=== PATIENT | male | born 1990 | race Caucasian/White ===

== ENCOUNTER → 2025-03-14 07:05 | Outpatient (REF) | payer OTHER, SELFPAY | LOC: RAD 07:05 | PROVIDERS: ATTENDING PHYSICIAN Internal Medicine Rheumatology; FAMILY PHYSICIAN Family Medicine | DX: M13.0 Polyarthritis, unspecified (principal) | CPT/HCPCS: 72114; 72200; 73070; 73560; 73565; 73630 ==

== ENCOUNTER → 2025-05-13 09:15 | Outpatient (REF) | payer OTHER, SELFPAY | LOC: RAD 09:15 | PROVIDERS: FAMILY PHYSICIAN Family Medicine | DX: N44.2 Benign cyst of testis (principal); N50.812 Left testicular pain | CPT/HCPCS: 76870; 93976 ==

== ENCOUNTER 2025-05-16 00:05 | Emergency (ER) | payer OTHER, SELFPAY ==
[2025-05-16] VITALS (18 sets, daily range): BP systolic 76–101; BP diastolic 35–64; BMI 28.2
--- NOTE | 2025-05-16 00:31 | ED.GENMED ---
History of Present Illness
General
Chief Complaint: Abdominal Symptoms
Source: patient
Exam Limitations: none
Time Seen by Provider: 05/16/25 00:28
Nursing documentation reviewed up to this point in time: agreed with
History of Present Illness
History of Present Illness:
Note:
CHIEF COMPLAINT(S)
Abdominal pain, nausea, and diarrhea.
HISTORY OF PRESENT ILLNESS
The patient is a 31-year-old male who presents with abdominal pain, nausea, and diarrhea that began around 4:30 PM. He describes the pain as severe, affecting both the stomach and head, and noted that his symptoms worsened after an initial upset
stomach feeling. The patient reports that he could induce vomiting at will, initially attributing his symptoms to overeating. Approximately an hour after experiencing an upset stomach, he developed vomiting and diarrhea simultaneously. The diarrhea
is characterized as liquid with red discoloration in the water, and he has experienced approximately eight bowel movements within the past 90 minutes. The patients spouse experienced similar symptoms approximately one hour earlier. Both the patient
and his had consumed similar meals, including a Thai toast casserole in the morning and several appetizers, including alpine poppers, later in the day. However, other individuals who consumed the same food did not report similar symptoms. The
patient denied any fever, having checked multiple times.
SOCIAL DETERMINANTS AFFECTING HEALTH
The patient expresses concern about substance use, noting occasional cigar smoking but denies being a regular smoker. He also reports minimal alcohol consumption, preferring beer and light alcoholic drinks on social occasions.
SOCIAL HISTORY
The patient smokes cigars occasionally but is not a habitual cigarette smoker. Alcohol consumption is minimal, with preferences for low-alcohol content beverages.
MEDICATIONS
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
PHYSICAL EXAM
General: Alert, no acute distress.
Skin: Warm, dry.
Head: Normocephalic, atraumatic.
Neck: Supple, trachea midline.
Eye Ears, nose, mouth and throat: Oral mucosa moist.
Cardiovascular: Normal peripheral perfusion, No edema.
Respiratory: Respirations are non-labored.
Gastrointestinal: Abdomen nondistended.
Back: Normal range of motion, Normal alignment.
Musculoskeletal: Normal ROM, normal strength.
Neurological: Alert and oriented to person, place, time, and situation, No focal neurological deficit observed.
Psychiatric: Cooperative, appropriate mood & affect.
PLAN
The plan includes obtaining stool samples for further analysis to determine the cause of the symptoms. Provided advice on dietary restrictions to promote gastrointestinal comfort, suggesting the patient avoids meat and bread. Initiated fluid
replacement therapy and continued monitoring of symptoms.
DIFFERENTIAL DIAGNOSIS
The Differential Diagnosis includes, in no particular order and is not limited to:
1. Gastroenteritis (possibly foodborne)
2. Viral Gastroenteritis
3. Salmonella infection
4. Staphylococcal food poisoning
5. Campylobacter infection
6. Norovirus infection
7. Escherichia coli (E. coli) infection
8. Clostridium difficile infection
9. Rotavirus infection
10. Parasitic infections (e.g., Giardia)
CARE-UPDATE
05/16/25 - 04:26
Patient is now tolerating oral liquids beyond ice chips and reports significant improvement in overall well-being.
Disposition:
SUMMARY OF ENCOUNTER
The patient, a 31-year-old male, was seen due to nausea, vomiting, and diarrhea that started earlier in the day. Symptoms have since resolved, and the patient is feeling much better. In the emergency department, his condition improved considerably,
requiring no acute interventions.
DISPOSITION
Discharge.
PLAN
The patient will continue with supportive care measures and dietary restrictions as discussed.
PATIENT EDUCATION AND COUNSELING
The patient was advised on dietary restrictions to avoid potential triggers that could worsen gastrointestinal symptoms. He was informed to seek medical care if symptoms returned or worsened.
FOLLOW-UP INSTRUCTIONS
Patient advised to follow up with primary care provider if symptoms persist or worsen.
MEDICATION RECONCILIATION
A prescription for ondansetron (Zofran) was provided for nausea, should symptoms reoccur.
MEDICAL DECISION MAKING
- Number and Complexity of Problems Addressed:
Gastrointestinal complaints possibly related to foodborne or viral causes.
- Risk:
Prescription medication was prescribed, indicating prescription drug management for nausea.
DIAGNOSIS
1. Nausea and vomiting, suspected gastroenteritis - ICD-10 code R11.2
2. Diarrhea, unspecified - ICD-10 code R19.7
Phy Exam
Physical Exam
Physical Exam:
.
Course
Orders/Labs/Results
Orders:
Orders
05/16/25 00:29
Electrocardiogram (*1) Stat
Reason for Study: Abdominal Pain
CT Abd/Pel (IV only)-DH only Urgent
Comment:
Reason For Exam: abd pain, bloody stool
Cardiac Monitoring- Treatment ONCE
EKG- Treatment ONCE
0.9% Sodium Chloride 1000 ml [Nss] 1,000 ml IV BOLUS
Ondansetron Injectable [Zofran] 4 mg IV NOW STA
05/16/25 00:53
Complete Blood Count/With Diff Urgent
Comprehensive Metabolic Panel Urgent
Lactic Acid Urgent
Lipase Urgent
Troponin I Q6H
Blood Culture Q30M
MAYA Source: Blood/Venous
Specimen Description:
05/16/25 00:59
Dicyclomine HCl [Bentyl] 20 mg IM NOW STA
05/16/25 01:20
Blood Culture Q30M
MAYA Source: Blood/Venous
Specimen Description:
05/16/25 02:11
Morphine Sulfate 4 mg IV NOW STA
Ondansetron Injectable [Zofran] 4 mg IV NOW STA
05/16/25 02:23
0.9% Sodium Chloride 1000 ml [Nss] 1,000 ml IV BOLUS
Abnormal Lab Results
05/16/25
00:53
MPV 11.6 H fL
(7.4-10.4)
Abs Immat Gran (auto) 0.1 H 10^3/uL
(0-0.05)
Absolute Neuts (auto) 9.5 H 10^3/uL
(1.4-6.5)
Absolute Lymphs (auto) 0.3 L 10^3/uL
(1.2-3.4)
Absolute Monos (auto) 0.7 H 10^3/uL
(0.1-0.6)
Immature Gran % 0.7 H %
(0-0.5)
Neutrophils % 89.0 H %
(42.2-75.2)
Lymphocytes % 2.9 L %
(20.5-51.1)
Carbon Dioxide 21 L mmol/L
(22-30)
BUN 33 H mg/dl
(9-20)
Glucose 130 H mg/dl
(70-99)
Lactic Acid 3.2 H mmol/L
(0.7-2.0)
Total Bilirubin 1.5 H mg/dl
(0.2-1.3)
05/16/25 00:53
05/16/25 00:53
Vital Signs
Initial and Last Documented VS:
Initial Vital Signs
Temp Pulse Resp BP
99.8 F 103 28 81/58
05/16/25 00:22 05/16/25 00:22 05/16/25 00:22 05/16/25 00:22
Last Documented Vital Signs
Temp Pulse Resp BP Pulse Ox
99.8 F 87 25 98/58 98
05/16/25 00:22 05/16/25 04:45 05/16/25 04:45 05/16/25 04:30 05/16/25 04:45
*Radiology
Radiology exam reviewed: radiology read reviewed
*Pulse Oximetry
Patient hypoxic: no
*Critical Care Note
Total Time (30-74mins, 75-104mins- exclusive of procedures): Not Applicable
Update Note
Update Note:
NAME: NOEL NEIL
DATE OF EXAM: 05/16/2025
Patient No: [id number]
Physician: JA^Rashad
Date of : 1990
Past Medical History (entered by Technologist):
Reason For Exam (entered by Technologist): abd pain, vomiting, bloody diarrhea.
Other Notes (entered by Technologist): no prior
Additional Information (per [facility]):
CT ABDOMEN/PELVIS WITH CONTRAST
IMPRESSION:
1. Mild diffuse colonic wall thickening and wall thickening of loops of small bowel within the central lower abdomen may represent enterocolitis
2. No bowel obstruction. Normal gallbladder and appendix
Incidentals:
- No obstructive uropathy.
- No hepatic or pancreatic mass.
- No abdominal aortic aneurysm.
- No acute osseous abnormality.
- No acute abnormality within the visualized lungs.
- No acute abnormality within the visualized soft tissues.
Case finalized on 05/16/25 02:26 EDT
Omar Amador M.D.
This report has been electronically signed and verified by the Radiologist whose name is printed above.
ED Attending Note
-
Portions of this chart may have been created with voice recognition software.� Occasional wrong word or��sound alike� substitutions may have occurred due to the inherent limitations of voice recognition software.
Discharge Plan
Departure
Patient Disposition: Home (Routine Discharge)
Date of Disposition: 05/16/25
Time of Disposition: 04:36
Patient with high blood pressure during this ER visit?: Yes
Condition: Good
Discharge Problem:
Gastroenteritis
Instructions: Diarrhea in teens and adults, Clear Liquid Diet, Nausea and Vomiting, Adult (DC), BLOOD PRESSURE
Prescriptions:
New
ondansetron 4 mg tablet,disintegrating
4 mg PO Q4H PRN (Reason: nausea and vomiting) Qty: 20 0RF
Referrals:
Krzysztof Mott MD [Family Provider, Family Practice]
Activity Restrictions/Additional Instructions:
Thank You for choosing [facility].
It was a pleasure meeting you and taking part in your care. We hope for your continued healing and wellness.
Please read discharge instructions in their entirety. However, they are for general education and may not describe your exact diagnosis at discharge. Information on your ER visit and medical conditions were discussed with you along with appropriate
follow up information...
If indicated, please take your medications as instructed and indicated on discharge paperwork.
Please schedule a follow up appointment as directed. Call to schedule an appointment
Please return to the emergency department with ANY change in, persisting, or worsening of symptoms. If any of your symptoms do not improve, or persist, or become more severe within 6-12 hours, please return to the emergency department for further
care.
Please return to the emergency department if you develop a headache, neck pain/stiffness, fever greater than 100.4F, chest pain, shortness of breath, persistent nausea, vomiting, slurred speech, difficulty walking, numbness/tingling, weakness, signs
of infection or any other symptoms that are worrisome to you.
If you have any questions or concerns please do not hesitate to call the Hospital at .
Interventions
Interventions:
*General Assessment Last Done: 05/16/25 00:54
*Neglect/Abuse Screening Last Done: 05/16/25 00:54
*ED COVID-19 Vaccine History Last Done: 05/16/25 00:54
*ED Influenza Vaccine History Last Done: 05/16/25 00:54
[facility] Risk Assessment Tool Last Done: 05/16/25 01:57
*Risk Screen - Suicide (C-SSRS) Last Done: 05/16/25 00:22
*Nursing Disposition Last Done: 05/16/25 05:14
[id number] Assessment Last Done: 05/16/25 01:58
Discharge Date and Time
Discharge Date/Time: 05/16/25 05:15
Print Language: SPANISH
[2025-05-16] MEDS: ZOFRAN 4 MG IV ×2 (00:53→02:15)
[2025-05-16] MEDS: NSS 1000 IV ×2 (00:53→02:24)
[2025-05-16] MEDS: BENTYL 20 MG IM (01:05)
[2025-05-16 01:11] LABS: Hematocrit 50.5 % (39.0-52.0); Hemoglobin 17.9 g/dL (13.0-18.0); Mean Corp Hgb Conc. 35.4 g/dL (33.0-37.0); Mean Corpuscular Volume 86.6 fL (80.0-94.0); Nucleated Red Blood Cells % 0 % (-); Platelet Count 156 10^3/uL (130-400); Red Cell Dist. Width 12.3 % (11.5-14.5)
[2025-05-16 01:27] LABS: ALT (SGPT) 37 U/L (0-50); AST (SGOT) 28 U/L (17-59); Albumin 4.9 g/dl (3.5-5.0); Alkaline Phosphatase 62 U/L (38-126); Blood Urea Nitrogen 33 mg/dl (9-20); Calcium 9.7 mg/dl (8.4-10.2); Carbon Dioxide 21 mmol/L (22-30); Chloride 104 mmol/L (98-107); Estimated Creatinine Clearance 81 ml/min; Glucose 130 mg/dl (70-99); Lipase 66 U/L (23-300); Potassium 4.4 mmol/L (3.5-5.1); Sodium 137 mmol/L (135-145); Total Protein 7.6 g/dl (6.3-8.2); eGFR > 60.00
[2025-05-16 01:39] LABS: Troponin I < 0.012 ng/ml
[2025-05-16] MEDS: MORPHINE SULFATE 4 MG IV (02:15)
== END 2025-05-16 05:15 | disposition home or self-care (01) ==
LOC: EMR 00:05
PROVIDERS: EMERGENCY PHYSICIAN Student in an Organized Health Care Education/Training Program; FAMILY PHYSICIAN Family Medicine
DX: K52.9 Noninfective gastroenteritis and colitis, unspecified (principal); R03.0 Elevated blood-pressure reading, without diagnosis of hypertension; F17.290 Nicotine dependence, other tobacco product, uncomplicated
CPT/HCPCS: 99284; 96375; 96372; 96374; 96376; 74177; 80053; 83605; 83690; 84484; 85025; 87040; 93005; Q9967